=== PATIENT | male | born 1935 | race Caucasian/White ===

== ENCOUNTER 2025-04-09 20:03 | Emergency (ER) | payer MEDICARE, OTHER, SELFPAY ==
[2025-04-09 20:10] VITALS: BP 139/85
--- NOTE | 2025-04-09 22:30 | ED.GENMED ---
History of Present Illness
General
Chief Complaint: Head Injury
Source: patient and family (Daughter)
Exam Limitations: none
Time Seen by Provider: 04/09/25 21:49
Nursing documentation reviewed up to this point in time: agreed with
History of Present Illness
History of Present Illness:
89-year-old male with history as documented presents to the ER for evaluation after a fall with head strike. Patient was walking on his driveway today and tripped and fell forward and struck his head on the cement. He did not pass out, sustained
abrasion to the forehead but no other serious injuries. Initially went to urgent care but was referred to the ER given his age to have a CT scan. He denies any headache, neck pain, back pain, chest pain, pain in his extremities or any other
complaints. He says that he feels fine and just wants his abrasion cleaned.
Past History
Past History
ED Past Medical History: HTN and Hypercholesterolemia
ED Past Surgical History: Other (Prostatectomy, spinal fusion, right knee surgery)
Social History
Personal:
Living: with family
Employment: Employed
Review of Systems
Review of Systems
All Other Systems: ROS reviewed and negative except as documented in HPI and ROS
Respiratory: Denies trouble breathing
Cardiac: Denies chest pain
ABD/GI: Denies abdominal pain or nausea
: Denies flank pain
Musculoskeletal: Denies joint pain, neck pain or back pain
Skin: Reports other (abrasion)
Neurological: Denies headache
Phy Exam
Physical Exam
Physical Exam:
General: Awake, alert, oriented x3 with GCS of 15; no acute distress
Head: Normocephalic, atraumatic
Eyes: Conjunctiva normal, EOMI, pupils equal round and reactive to light bilaterally
Throat: Airway intact, tongue atraumatic
Neck: Trachea midline, no cervical spine tenderness, full range of motion of the cervical spine without pain
Back: No signs of trauma to the back or flank and no tenderness in the thoracic or lumbar spine
Lungs: Breathing comfortable with no distress
Heart: Regular rate, no chest wall tenderness
Abd: Soft, non distended, nontender
Neuro: No gross deficits, ambulatory
Skin: Patient has abrasion to the forehead as well as a minor abrasion to the dorsum of the right wrist
Extremities: No tenderness in the upper or lower extremities, full range of motion in all large joints of the upper and lower extremities without pain; extremities are warm and well-perfused
Scores
Heart Failure Risk
Heart Failure Risk Score: Not Applicable
Heart Score for Chest Pain Patients
STEMI patient?: Not applicable
Withdrawal Assessment of Alcohol
Withdrawal Assessment Completed?: Not applicable
Course
Orders/Labs/Results
Orders:
Orders
04/09/25 20:[address] [CT Head W/o Iv Contrast] Urgent
Comment:
Reason For Exam: FALL
Vital Signs
Initial and Last Documented VS:
Initial Vital Signs
Temp Pulse Resp BP Pulse Ox
36.7 C 79 20 139/85 97
04/09/25 20:10 04/09/25 20:10 04/09/25 20:10 04/09/25 20:10 04/09/25 20:10
Last Documented Vital Signs
Temp Pulse Resp BP Pulse Ox
36.7 C 79 20 139/85 97
04/09/25 20:10 04/09/25 20:10 04/09/25 20:10 04/09/25 20:10 04/09/25 20:10
MDM/Problems Addressed
Differential Diagnosis Includes:
Intracranial hemorrhage, forehead abrasion, concussion
MDM/Problems Addressed:
89-year-old male presents after mechanical trip and fall with head strike. No other serious injuries. He has no complaints but given his age was sent in for CT scan. CT head shows no acute posttraumatic abnormalities. Abrasion cleaned.
Discharged with PCP follow-up.
*Radiology
Radiology exam reviewed: radiology read reviewed
*Pulse Oximetry
Patient hypoxic: no
*Critical Care Note
Total Time (30-74mins, 75-104mins- exclusive of procedures): Not Applicable
Data Reviewed
Source: patient and family
ED Attending Note
-
Portions of this chart may have been created with voice recognition software.� Occasional wrong word or��sound alike� substitutions may have occurred due to the inherent limitations of voice recognition software.
Discharge Plan
Departure
Patient Disposition: Home (Routine Discharge)
Date of Disposition: 04/09/25
Time of Disposition: 22:24
Patient with high blood pressure during this ER visit?: No
Discharge Problem:
Abrasion of head
Instructions: Abrasions - ED discharge instructions
Prescriptions:
No Action
metoprolol ta-hydrochlorothiaz [Lopressor HCT] 1 EACH tablet
1 ea PO DAILY
simvastatin 20 MG tablet
20 mg PO QPM
prednisone 10 mg Tablet
See Rx Instructions .ROUTE .COMPLEX Qty: 30 0RF
Rx Instructions:
Take By Mouth:
40 mg daily x3 days, 30 mg daily x3 days,
20 mg daily x3 days, 10 mg daily x3 days.
Referrals:
Lowell Stack MD [Family Provider] - Follow up in 1 week
Activity Restrictions/Additional Instructions:
Thank you for visiting the Emergency Department at [facility].
1. Please schedule a follow up appointment as directed. Call first thing tomorrow morning to make an appointment.
2. If indicated, please take your medications as instructed and indicated on discharge paperwork.
3. If any of your symptoms do not improve, or persist, or become more severe within 6-12 hours, please return to the emergency department for further care.
4. Please return to the emergency department if you develop a headache, neck pain/stiffness, fever greater than 100.4F, chest pain, shortness of breath, persistent nausea, vomiting, slurred speech, difficulty walking, numbness/tingling, weakness,
signs of infection or any other symptoms that are worrisome to you.
Please call [phone] if you have any questions.
Interventions
Interventions:
*General Assessment Last Done: 04/09/25 20:10
Discharge Date and Time
Print Language: SPANISH
== END 2025-04-09 22:40 | disposition home or self-care (01) ==
LOC: EMR 20:03
PROVIDERS: EMERGENCY PHYSICIAN Emergency Medicine; FAMILY PHYSICIAN Family Medicine
DX: S00.81XA Abrasion of other part of head, initial encounter (principal); W01.198A Fall on same level from slipping, tripping and stumbling with subsequent striking against other object, initial encounter; I10 Essential (primary) hypertension; E78.00 Pure hypercholesterolemia, unspecified
CPT/HCPCS: 99284; 70450